=== PATIENT | female | born 2000 | race Caucasian/White ===

== ENCOUNTER 2022-04-20 16:22 | Emergency (ER) | payer OTHER ==
[~2022-04-20] VITALS: Ht 175.3 cm; Wt 151.9 kg
[2022-04-21] MEDS ORDERED: NAPROSYN500 MG PO (03:28)
== END 2022-04-20 21:57 | disposition left against medical advice (07) ==
LOC: ED 16:22
DX: M10.9 Gout, unspecified (principal); J45.909 Unspecified asthma, uncomplicated
CPT/HCPCS: 36415; 73630; 80048; 84550; 84703; 85025; 85379; 99283-25